=== PATIENT | female | born 1975 | race Caucasian/White ===

== ENCOUNTER → 2017-10-07 | Outpatient (CLI) | payer BC ==
--- NOTE | 2017-10-08 07:12 | Diagnostic Imaging Report ---
EXAMINATION: MRI of the lumbar spine without contrast HISTORY: Low back pain radiating to the right COMPARISON: None. TECHNIQUE: Sagittal T1, T2, STIR; axial T2 and proton density. FINDINGS: It is assumed that there are 5 lumbar vertebrae. Curvature/Alignment: Normal lordosis. Subtle left-sided curvature with apex at L4-5. Vertebrae: No evidence of recent fracture, infection, or neoplasm. Conus: Normal, terminating at L1 Cauda equina: Unremarkable. Lower thoracic: Unremarkable. Paraspinal soft tissues: Partially visualized heterogeneous signal intensity approximately 4.3 cm cystic lesion in the right side of the pelvis, probably adnexal. Degenerative changes: L1-L2: Unremarkable. L2-L3: Unremarkable. L3-L4: Unremarkable. L4-L5: Mild decreased disc height and T2 signal intensity, asymmetric to the right disc osteophyte and mild bilateral facet arthrosis. Mild right foraminal stenoses L5-S1: Asymmetric to the left hip disc osteophyte and mild facet arthrosis. No significant canal or foraminal stenosis. Sacroiliac joints: Unremarkable. IMPRESSION: 1. Mild foraminal stenosis on the right at L4-L5 due to minimal scoliosis and degenerative changes. 2. Mild spondylosis at L5-S1 without stenosis. 3. Partially visualized cystic lesion in the right side of the pelvis. A pelvic ultrasound is recommended for further evaluation. Signed by: Dr. Dory Solano M.D. on 10/08/2017 7:08 AM
--- NOTE | 2017-10-08 08:18 | Diagnostic Imaging Report ---
TECHNIQUE: Magnetic resonance imaging of the RIGHT HIP was performed WITHOUT injected contrast. HISTORY: Pain COMPARISON: None available. FINDINGS: Bone: No focal or infiltrative bone marrow replacing abnormality. No osteonecrosis or acute fracture. Femoroacetabular Joint: Acetabular labrum: Fraying of the anterior and superior labrum with probable focal detachment anteriorly axial image 13. Articular Cartilage: Cartilage thinning without high-grade defect. Muscle and tendons: The visualized tendons are intact. Soft tissues: 4 cm right adnexal mass containing fat probable calcium. IMPRESSION: Right labral fraying with focal detachment anteriorly. 4 cm right adnexal dermoid. Signed by: Dr. Reza Delgado M.D. on 10/08/2017 8:15 AM
--- NOTE | 2017-10-08 08:19 | Diagnostic Imaging Report ---
TECHNIQUE: Magnetic resonance imaging of the LEFT HIP was performed WITHOUT injected contrast. HISTORY: Pain COMPARISON: None available. FINDINGS: Bone: No focal or infiltrative bone marrow replacing abnormality. No osteonecrosis or acute fracture. Femoroacetabular Joint: Acetabular labrum: Fraying of the anterior and superior labrum with probable focal detachment anteriorly axial image 15. Articular Cartilage: Cartilage thinning without high-grade defect. Muscle and tendons: The visualized tendons are intact. Soft tissues: 4 cm right adnexal mass containing fat probable calcium. IMPRESSION: Left labral fraying with focal detachment anteriorly. 4 cm right adnexal dermoid. Signed by: Dr. Reza Delgado M.D. on 10/08/2017 8:16 AM
== END ==
LOC: MRI 16:34
PROVIDERS: ATTEND Specialist
DX: M54.5 Low back pain (principal); M25.552 Pain in left hip; M25.551 Pain in right hip; W19.XXXA Unspecified fall, initial encounter
CPT/HCPCS: 72148; 81025